=== PATIENT | female | born 1935 | race Caucasian/White ===

== ENCOUNTER 2016-12-31 21:31 | Emergency (ER) | payer MEDICARE, OTHER ==
[~2016-12-31] VITALS: Ht 154.9 cm; Wt 66.0 kg
[2016-12-31] MEDS ORDERED: CARV6.2512 PO (22:07)
[2016-12-31] MEDS ORDERED: CEFD300C37 PO (22:08)
[2016-12-31] MEDS ORDERED: LISI-170 PO (22:08)
[2016-12-31] MEDS ORDERED: PRAV20TA2 PO (22:08)
[2016-12-31] MEDS ORDERED: CLOP75TA PO (22:08)
[2016-12-31] MEDS ORDERED: RANI150T4 PO (22:08)
[2016-12-31] MEDS ORDERED: OXYC10TA6 PO (22:08)
[2016-12-31] MEDS ORDERED: LIDOCAINE 2%, 20ML SQ ONE (23:30)
[2016-12-31] MEDS ORDERED: LIDOCAINE-MPF 2% ,5ML ONE (23:30)
[2016-12-31] MEDS ORDERED: LIDOCAINE 1%, 20ML ONE (23:32)
[2017-01-01 01:38] VITALS: BP 133/64
== END 2017-01-01 02:35 | disposition home or self-care (01) ==
LOC: ED 01-01 02:23
DX: S06.0X9A Concussion with loss of consciousness of unspecified duration, initial encounter (principal); S01.01XA Laceration without foreign body of scalp, initial encounter; I10 Essential (primary) hypertension; I25.2 Old myocardial infarction; E78.00 Pure hypercholesterolemia, unspecified; W10.9XXA Fall (on) (from) unspecified stairs and steps, initial encounter; Y93.89 Activity, other specified; Y99.8 Other external cause status; Y92.099 Unspecified place in other non-institutional residence as the place of occurrence of the external cause
CPT/HCPCS: 12002; 70450; 72125; 99284

== ENCOUNTER 2017-01-07 14:29 | Emergency (ER) | payer OTHER ==
[~2017-01-07] VITALS: Ht 154.9 cm; Wt 65.6 kg
[~2017-01-07 14:29] MED LIST: CARV6.2512 PO; CEFD300C37 PO; CLOP75TA PO; LISI-170 PO; OXYC10TA6 PO; PRAV20TA2 PO; RANI150T4 PO
[2017-01-07 14:31] VITALS: BP 114/63
== END 2017-01-07 15:25 | disposition home or self-care (01) ==
LOC: ED 15:10
DX: S01.01XD Laceration without foreign body of scalp, subsequent encounter (principal); I10 Essential (primary) hypertension
CPT/HCPCS: 99281

== ENCOUNTER 2020-06-03 16:44 | Emergency (ER) | payer MEDICARE, OTHER ==
[~2020-06-03] VITALS: Ht 152.4 cm; Wt 65.4 kg
--- NOTE | 2020-06-03 17:29 | NUR ---
PROVIDER AT BEDSIDE FOR ASSESSEMT. PLAN OF CARE DISCUSSED. QUESTIONS ANSWERED.
--- NOTE | 2020-06-03 17:29 | NUR ---
PT COMES IN C/O DYSURIA. PT STATES SHE WAS DIAGNOSED WITH A UTI "2-3 WEEKS AGO" AND WAS GIVEN AN ANTIBIOTIC WHICH SHE FINISHED. PT STATES SHE CONTINUES TO HAVE PAIN ON URINATION. MONITORS CONNECTED. VSS. NAD. CALL LIGHT W/IN REACH
[2020-06-03 17:39] LABS: MICROSCOPIC INDICATED
[2020-06-03] MEDS ORDERED: CEFTRIAXONE 1,000 MG IM ONE (18:00)
[2020-06-03] MEDS ORDERED: CEFTRIAXONE 1,000 MG ONE (18:03)
[2020-06-03 18:48] LABS: BASOPHILS % (AUTO) 1 % (0-1); EOSINOPHILS % (AUTO) 4 % (1-7); LYMPHOCYTES % (AUTO) 22 % (22-44); MD NO; MEAN CORPUSCULAR HEMOGLOBIN 29.8 pg (27.0-34.8); MEAN CORPUSCULAR HGB CONC 33.5 g/dL (32.4-35.8); MEAN PLATELET VOLUME 8.1 fL (7.4-10.4); MONOCYTES % (AUTO) 8 % (2-9); NEUTROPHILS % (AUTO) 65 % (42-75); PLATELET COUNT 316 x10^3/uL (130-400); RED BLOOD COUNT 4.11 x10^6/uL (3.82-5.3); RED CELL DISTRIBUTION WIDTH 13.9 % (9.6-15.2)
[2020-06-03 18:56] LABS: ALANINE AMINOTRANSFERASE 17 U/L (12-78); ALBUMIN 3.4 g/dL (3.4-5.0); ANION GAP 7 mmol/L (5-15); CHLORIDE 104 mmol/L (98-107)
[2020-06-03 19:05] LABS: ALKALINE PHOSPHATASE 61 U/L (45-117); BILIRUBIN,TOTAL 0.3 mg/dL (0.2-1.0); CHOLESTEROL, TOTAL 135 mg/dL (140-239); CREATININE 1.34 mg/dL (0.55-1.02); HDL CHOL % 50 % (28-40); HDL CHOLESTEROL (DIRECT) 68 mg/dL (40-60); LDL CHOLESTEROL,CALCULATED 53 mg/dL (54-169); LDL/HDL RATIO 0.8 (0.5-3.0); TOTAL PROTEIN 7.6 g/dL (6.4-8.2); TRIGLYCERIDES 70 mg/dL (50-200); VLDL CHOLESTEROL 14 mg/dL (0-25)
--- NOTE | 2020-06-03 19:33 | NUR ---
PT RESTING ON [facility]. ULTRASOUND COMPLETE. AWAITING RESULTS. LAB WORK COMPLETE. VSS. NAD. CALL LIGHT W/IN REACH
[2020-06-03 19:57] VITALS: BP 139/64
--- NOTE | 2020-06-03 20:16 | NUR ---
PT AMBULATED TO DISCHARGE WITH STEADY GAIT. PT ENCOURAGED TO FOLLOWUP DISCUSSED. PT EDUCATED TO RETURN TO THE ED WITH WORSENSING SYMPTOMS
== END 2020-06-03 20:18 | disposition home or self-care (01) ==
LOC: ED 17:58
DX: N30.00 Acute cystitis without hematuria (principal); I10 Essential (primary) hypertension; E78.00 Pure hypercholesterolemia, unspecified; I25.2 Old myocardial infarction; Z95.4 Presence of other heart-valve replacement
CPT/HCPCS: 36415; 76770; 80053; 80061; 81001; 83036; 84439; 84443; 85025; 87077; 87086; 96372; 99284; J0696; 87186

== ENCOUNTER 2021-01-14 15:57 | Emergency (ER) | payer MEDICARE ==
[~2021-01-14] VITALS: Ht 160 cm; Wt 65.0 kg
[2021-01-14 16:55] LABS: BASOPHILS % (AUTO) 1 % (0-1); EOSINOPHILS % (AUTO) 4 % (1-7); LYMPHOCYTES % (AUTO) 23 % (22-44); MEAN CORPUSCULAR HEMOGLOBIN 29.9 pg (27.0-34.8); MEAN CORPUSCULAR HGB CONC 33.8 g/dL (32.4-35.8); MEAN PLATELET VOLUME 7.5 fL (7.4-10.4); MONOCYTES % (AUTO) 7 % (2-9); NEUTROPHILS % (AUTO) 65 % (42-75); PLATELET COUNT 340 x10^3/uL (130-400); RED BLOOD COUNT 4.42 x10^6/uL (3.82-5.3); RED CELL DISTRIBUTION WIDTH 13.4 % (9.6-15.2)
[2021-01-14 17:05] LABS: ALBUMIN 3.5 g/dL (3.4-5.0); ANION GAP 7 mmol/L (5-15); CALCIUM 9.2 mg/dL (8.5-10.1); CHLORIDE 97 mmol/L (98-107); CREATININE 0.98 mg/dL (0.55-1.02)
--- NOTE | 2021-01-14 18:26 | NUR ---
PATIENT TO ROOM FROM LOBBY
[2021-01-14 18:33] VITALS: BP 148/65
[2021-01-14 18:36] LABS: MICROSCOPIC AUTO
[2021-01-14] MEDS ORDERED: PHENAZOPYRIDINE 200 MG TABLET PO ONE (19:00)
[2021-01-14] MEDS ORDERED: CEFDINIR 300 MG CAPSULE PO/NG ONE (19:00)
[2021-01-14] MEDS ORDERED: PHENAZOPYRIDINE 200 MG TABLET ONE (19:04)
[2021-01-14] MEDS ORDERED: CEFDINIR 300 MG CAPSULE ONE (19:04)
--- NOTE | 2021-01-14 19:20 | NUR ---
pt educated on dc instructions and prescription, verbalized undertsanding. taken to dc via wheelchair, accompanied by friend
== END 2021-01-14 19:23 | disposition home or self-care (01) ==
LOC: ED 16:15
DX: R30.0 Dysuria (principal); E78.00 Pure hypercholesterolemia, unspecified; I25.2 Old myocardial infarction; I10 Essential (primary) hypertension
CPT/HCPCS: 36415; 80048; 81001; 82040; 85025; 87077; 87086; 87186; 99283